=== PATIENT | male | born 1980 | race Caucasian/White ===

== ENCOUNTER 2019-02-03 20:43 | Emergency (ER) | payer MEDICAID ==
[~2019-02-03] VITALS: Ht 180.3 cm; Wt 65.9 kg
[2019-02-03 20:47] VITALS: Ht 180.3 cm; Wt 65.9 kg
[2019-02-03] MEDS ORDERED: BACTRIM 400-801 TAB PO (22:55)
[2019-02-03 23:38] VITALS: BP 128/74
== END 2019-02-03 23:38 | disposition home or self-care (01) ==
LOC: D.ER 20:43
DX: S01.01XA Laceration without foreign body of scalp, initial encounter (principal); X58.XXXA Exposure to other specified factors, initial encounter; Y93.89 Activity, other specified; Y92.89 Other specified places as the place of occurrence of the external cause